=== PATIENT | male | born 1970 | race Two or more races ===

== ENCOUNTER 2021-12-28 00:48 | Emergency (ER) | payer MEDICAID ==
[~2021-12-28] VITALS: Ht 175.3 cm; Wt 84.8 kg
[2021-12-28] MEDS ORDERED: NALOXONE HCL 1MG/ML 2ML SYRINGE ONE (00:59)
[2021-12-28] MEDS ORDERED: ACETAMINOPHEN 650 MG RECT SUPP PR ONE (01:00)
[2021-12-28] MEDS ORDERED: ROCURONIUM 10MG/ML 10ML VIAL IV ONE ×2 (01:07→02:45)
[2021-12-28] MEDS ORDERED: ETOMIDATE (2MG/ML) 20ML VIAL IV ONE ×2 (01:07→02:45)
[2021-12-28 01:30] VITALS: BP 147/103
[2021-12-28 01:38] LABS: Basophils # (auto) 0.1 10 ^3/uL (0-0.2); Basophils % (auto) 0.4 % (0.0-2.0); Eosinophils # (auto) 0 10 ^3/uL (0-0.8); Hematocrit 46.5 % (41.0-53.0); Lymphocytes % (auto) 4.3 % (10.0-50.0); Mean Corpuscular Hemoglobin 29.8 pg (28.0-32.0); Mean Corpuscular Hgb Conc. 34.3 g/dL (32.0-36.0); Monocytes # (auto) 1.4 10 ^3/uL (0-1.3); Monocytes % (auto) 5.9 % (0.0-12.0); Neutrophils # (auto) 21.5 10 ^3/uL (1.6-8.6); Neutrophils % (auto) 89.4 % (37.0-80.0); Nucleated Red Blood Cells % 0.1 %; Red Blood Cells 5.35 10^6/uL (4.5-5.90); Red Cell Distribution Width 13.7 % (11.8-14.3); White Blood Cell 24.1 10^3/uL (4.4-10.8)
[2021-12-28] MEDS ORDERED: DexAMETHasone SOD PHOS 10MG/1ML VIAL INJ IV ONE (01:45)
[2021-12-28 01:54] LABS: Albumin 3.4 g/dL (3.4-5.0); BUN/Creatinine Ratio 15.3; Calcium 9.9 mg/dL (8.5-10.1); Potassium 3.5 mmol/L (3.5-5.1)
[2021-12-28 01:57] LABS: Bilirubin, Total 1.6 mg/dL (0.2-1.0); Total Protein 6.8 g/dL (6.4-8.2)
[2021-12-28 02:11] LABS: Alcohol, Urine < 3.0 mg/dL (0-10); Amphetamine Screen, Urine NEGATIVE (NEGATIVE); Barbiturate Scree,Urine NEGATIVE (NEGATIVE); Benzodiazephine Screen, Urine NEGATIVE (NEGATIVE); Cocaine Screen, Urine NEGATIVE (NEGATIVE); Opiate Scree,Urine NEGATIVE (NEGATIVE); Phencyclidine Screen, Urine NEGATIVE (NEGATIVE)
[2021-12-28 02:12] LABS: Urine Bacteria FEW /hpf (None Seen); Urine Blood 3+ /uL (Negative); Urine Mucus FEW (None Seen); Urine Specific Gravity 1.031 (1.001-1.035); Urine WBC 8 /hpf (0 - 3)
[2021-12-28] MEDS ORDERED: levETIRAcetam 500 MG/5ML INJ IV ONE (02:17)
[2021-12-28 02:19] LABS: Cannabinoid Screen, Urine POSITIVE (NEGATIVE)
[2021-12-28] MEDS ORDERED: dilTIAZem 25 MG/5 ML VIAL IV ONE (02:30)
[2021-12-28] MEDS ORDERED: NALOXONE HCL 1MG/ML 2ML SYRINGE IV ONE (02:45)
[2021-12-28 04:07] VITALS: BP 111/82
== END 2021-12-28 04:42 | disposition short-term general hospital (02) ==
LOC: ER 00:48 → EDBD 00:48 → ER 04:42
DX: G93.6 Cerebral edema (principal); I48.0 Paroxysmal atrial fibrillation
CPT/HCPCS: 36415; 36600; 70450; 71045; 80053; 80307; 80320; 81001; 82805; 82962; 83605; 84484; 85025; 87040; 87070; 87077; 87186; 87205; 93005; 96365; 96367; 96375; 99291; J1100; J1953; J2310; J7060; 94002